=== PATIENT | male | born 1965 | race Caucasian/White ===

== ENCOUNTER 2023-05-03 22:34 | Emergency (ER) | payer BC ==
[~2023-05-03] VITALS: Ht 177.8 cm; Wt 127.0 kg
[2023-05-03] MEDS ORDERED: AMOX/CLAVULANATE 875 MG TABLET PO ONE (23:00)
[2023-05-03] MEDS ORDERED: IBUPROFEN 600 MG TABLET PO ONE (23:00)
[2023-05-03] MEDS ORDERED: ACETAMINOPHEN ES 500 MG TABLET PO ONE (23:00)
[2023-05-03] MEDS ORDERED: BACI/NEOM/POLY B OINT PKT 1 UDPKT PACKET TP ONE (23:00)
[2023-05-03] MEDS ORDERED: TDAP [DIPH/PERTUSSIS/TET] 0.5 ML VIAL IM ONE ×2 (23:00→23:09)
[2023-05-03] MEDS ORDERED: LIDOCAINE 1%-EPI 1:100,000 20 ML VIAL TP ONE (23:00)
[2023-05-03] MEDS ORDERED: ACETAMINOPHEN ES 500 MG TABLET ONE (23:08)
[2023-05-03] MEDS ORDERED: IBUPROFEN 600 MG TABLET ONE (23:08)
[2023-05-03] MEDS ORDERED: LIDOCAINE 1%-EPI 1:100,000 20 ML VIAL ONE (23:08)
[2023-05-03] MEDS ORDERED: AMOX/CLAVULANATE 875 MG TABLET ONE (23:09)
[2023-05-04] MEDS ORDERED: AMOX-430 PO (00:15)
[2023-05-04 00:31] VITALS: BP 178/94; TEMP 98.4; O2SAT 96
== END 2023-05-04 00:32 | disposition home or self-care (01) ==
LOC: ER 22:38
DX: S61.411A Laceration without foreign body of right hand, initial encounter (principal); I10 Essential (primary) hypertension; Z79.899 Other long term (current) drug therapy; W54.0XXA Bitten by dog, initial encounter; Y93.89 Activity, other specified; Y92.89 Other specified places as the place of occurrence of the external cause; Y99.8 Other external cause status
CPT/HCPCS: 12002; 73130; 90471; 90715; 99284; J3490